=== PATIENT | female | born 1940 | race Caucasian/White ===

== ENCOUNTER 2016-12-19 05:48 | Inpatient (IN) | payer MEDICARE ==
--- NOTE | 2016-12-13 14:29 | HP ---
HISTORY OF PRESENT ILLNESS: Ms. Fili Hewitt is a 76-year-old female that presents with low back pain, tenderness to palpation in the midline lumbar spine and bilateral SI joint pain. She has numbness and tingling in the lower extremities. She has had this pain intermittently and is worse on the right for the past 7 years; however, the pain is much worse in the past year. She is unable to walk for more than a block without having to sit down because of the pain in her legs. She has fallen several times after standing and walking because of her legs suddenly feel weak and give out. She is unable to get groceries at the grocery store because of the pain and has had physical therapy and has had several CESARIO injections over the past 2 years, they do little to relieve the pain and weakness when standing. The pain has made worse when walking and standing for too long and is made somewhat better with bending forward and sitting down. In addition, she has also been having neck pain. REVIEW OF SYSTEMS: Twelve-point review of systems completed, otherwise negative unless stated in the above HPI. PAST MEDICAL HISTORY: Thyroid disease and diabetic. PAST SURGICAL HISTORY: Hysterectomy at age 26 and gallbladder at age 36. HOSPITALIZATIONS: Hypercalcemia in 2015. FAMILY HISTORY: Father is , diagnosed with diabetes. Mother is . Siblings are alive. SOCIAL HISTORY: Nonsmoker. She is , has 3 children. MEDICATIONS: 1. Carvedilol 25 mg orally. 2. Paxil 10 mg 1 tablet in the morning, orally once a day. 3. Gabapentin 300 mg 1 capsule orally 3 times a day. 4. Estradiol 1 mg tablet orally daily for 3 weeks. 5. NovoLog insulin aspart 100 units/mL solution subcutaneous. 6. Humalog insulin lispro 100 units/mL solution subcutaneous. ALLERGIES: CODEINE SULFATE and SULFA. PHYSICAL EXAMINATION: HENT: Normocephalic, atraumatic. Hearing intact. Moist mucous membranes. Trachea midline. EYES: Pupils are equal and reactive to light. Extraocular muscles are intact. Sclerae are white, nonicteric. PSYCH: Normal mood and affect. CARDIOVASCULAR: No cyanosis or clubbing noted. Intact pedal pulses bilaterally. Regular rate and rhythm. MUSCULOSKELETAL: Lower extremity, 5/5 strength in bilateral iliopsoas, quadriceps, hamstrings, right iliopsoas anterior, extensor hallucis longus. Sensory deficits bilaterally in the S1 dermatome. Tender to palpation in the midline lumbar spine. RESPIRATORY: Even respirations, good effort. All lung turpin sound clear with no wheezing or crackles. NEUROLOGIC: Cranial nerves II-XII are grossly intact. Speech is fluent. She answers my questions appropriately. She has unsteady gait and station. ASSESSMENT: 1. Neurogenic claudication. 2. Lumbago with sciatica of the left side. 3. Lumbago with sciatica of the right side. 4. Chronic low back pain. PLAN: Because of Ms. Hewitt's low back pain and radicular symptoms into the legs that has been getting worse and she has failed conservative therapy, she opted for neurosurgical intervention to decompress and fuse L4-L5. Dr. Varela discussed the risks, benefits, alternatives and expected outcomes from surgery with the patient. She is willing to proceed with the surgery. Flexion, extension x-rays, and MRI at [facility]. She will bring on day of surgery. PRECIOUS
[2016-12-18 13:51] VITALS: BMI 27.3
[2016-12-19] MEDS ORDERED: Sodium Chloride 0.9% 30 ML ONE (06:16)
[2016-12-19] MEDS ORDERED: Bupivacaine PF 0.5% 30 ML VIAL ONE (06:16)
[2016-12-19] MEDS ORDERED: Thrombin 5000 UNITS/5 ML VIAL ONE (06:16)
[2016-12-19 06:24] LABS: #Basophils 0.1 thou/uL (0.0-0.2); #Eosinphils 0.1 thou/uL (0.0-0.7); #Lymphocytes 1.9 thou/uL (1.20-3.40); #Monocytes 0.4 thou/uL (0.11-0.59); %Basophils 1.5 % (0.0-1.0); %Eosinophils 2.1 % (0.0-10.0); %Lymphocytes 29.3 % (21.0-51.0); %Monocytes 5.9 % (0.0-10.0); Hematocrit 39.4 % (36.0-47.0); Red Blood Cell (RBC) Count 4.08 mill/uL (4.20-5.40); White Blood Cell (WBC) Count 6.5 thou/uL (4.8-10.8)
[2016-12-19 06:35] LABS: Anion Gap 12 mmol/L (10-20); BUN (Urea Nitrogen) 17 mg/dL (9.8-20.1); Calc. Creatinine Clearance 40 mL/min (70-130); Calcium 10.3 mg/dL (7.8-10.44); Carbon Dioxide 26 mmol/L (23-31); Chloride 99 mmol/L (98-107); Estimated GFR-MDRD 44
[2016-12-19] MEDS ORDERED: CEFAZOLIN/Water 2 GM/20 ML SYRINGE ONE (06:49)
[2016-12-19] MEDS ORDERED: Fentanyl 250 MCG/5 ML VIAL ONE (06:50)
[2016-12-19 06:52] LABS: Prothrombin Time 13.2 SEC (12.0-14.7)
[2016-12-19] MEDS ORDERED: Bisacodyl 10 MG SUPP PR PRN (10:11)
[2016-12-19] MEDS ORDERED: traMADol HCl 50 MG TAB PO PRN (10:15)
[2016-12-19] MEDS ORDERED: Fentanyl 100 MCG/2 ML VIAL ONE (11:14)
--- NOTE | 2016-12-19 11:24 | OP ---
DATE OF PROCEDURE: 12/19/2016 SURGEON: Alyssia Varela M.D. FIRE OFFICER: Yimi Rosa PA-C PREOPERATIVE INDICATION: Treat pain, prevent neurological deterioration. PREOPERATIVE DIAGNOSIS: Spondylolisthesis L4-L5 with significant lumbar spinal canal stenosis and i nstability. POSTOPERATIVE DIAGNOSIS: Spondylolisthesis L4-L5 with significant lumbar spinal canal stenosis and instability. OPERATIVE PROCEDURE: Decompressive laminectomy, complete facetectomy, foraminotomy, L4-L5, transfor aminal lumbar interbody arthrodesis L4-L5, placement of intervertebral biomechanical device L4-L5, p osterolateral arthrodesis L4-L5, pedicle screw and flex instrumentation L4-L5. PREOPERATIVE MEDICATION: Ancef 2 grams IV. DRAIN NUMBER: Zero. DRAIN TYPE: None. OPERATIVE DICTATION: The patient was brought to the operating room. General endotracheal anesthesi a was induced. The patient was positioned prone on the operating table with his chest and hips supp orted by the appropriate attachments for the Naresh frame. A lateral fluoro radiograph was used to plan our incision. The lumbar skin was sterilely prepped and draped. We opened our incision with a 10 blade knife and controlled bleeding with bipolar and monopolar cautery. We used monopolar caut karthik to dissect through the subcutaneous tissues to the thoracodorsal fascia. We incised the fascia in the midline and reflected the paraspinal muscles off the spinous process and lamina of L4 and L5. A self-retaining retractor was placed and a lateral fluoro radiograph confirmed the levels upon wh ich we were operating. We then carried our dissection over the facet joints at L3-L4 and L4-L5 to i dentify the transverse processes of L4 and L5 bilaterally. We irrigated copiously with bacitracin i rrigation. Using an Adson rongeur, we removed the posterior elements of L4. Kerrison rongeurs were used as well. We removed completely abnormal facet joint on the right at L4-L5 in its entirety. W ith this access point, we could enter the intervertebral space through the right L4-L5 foramen. We gently retracted the thecal sac medially and incised the disk space with a 15 blade knife. We remov ed disk contents using curettes and rongeurs. We used bone curettes to prepare the endplates for ar throdesis across that interspace. We measured the height of the interspace to 10 mm of the rectangu lar shaped bone rasp. We brought a 10 mm PEEK graft into the field. Laminectomy bone was carefully morselized on the back table after it was cleaned of all soft tissue attachments. The morselized b one was added to demineralized bone matrix as our fusion substrate. This substrate was packed into the PEEK graft and then the graft was advanced into the interspaces under radiographic guidance to t he appropriate depth. We turned our attention to pedicle screw instrumentation. Using bony anatomic landmarks, palpation of the medial portion of the pedicles, and a lateral fluoro radiograph as a guide, we chose entry points for pedicle screws at L4 and L5 bilaterally. We drill ed out our entry points and then tapped and then used the bone awl to create a trajectory as we kavita ed them, probed them again and then placed 6.5 mm diameter pedicle screws. A 360 degree image set w as generated with our isocenter C-arm confirming adequate positioning for pedicle screw instrumentat ion. We irrigated once again with bacitracin irrigation. With the high speed drill, we decorticate d the transverse processes of L4 and L5 bilaterally and over the decorticated bone in the posterolat eral recess, we left demineralized bone matrix and morselized autograft as our posterolateral fusion substrate. We then brought rods into the screw heads and tightened caps over them using a torque-c ounter-torque mechanism, ensured adequate tightness. Before final tightening, we applied compressio n across the interspace to keep our intervertebral graft in place. We probed the foramina, made domonique e they were widely patent. We irrigated one last time down the middle of the incision. We treated the wound with vancomycin powder, we closed in anatomic layers and we applied a sterile dressing. T his was a clean case and no contamination.
[2016-12-19] MEDS ORDERED: Lidocaine 1% PF 5 ML VIAL ONE (12:57)
[2016-12-19] MEDS ORDERED: CEFAZOLIN 1 GM VIAL ONE (12:57)
[2016-12-19] MEDS ORDERED: Ondansetron HCl/PF 4 MG/2 ML Vial ONE (12:57)
[2016-12-19] MEDS ORDERED: ePHEDrine/0.9% NaCl/PF SYRINGE 50 mg/10 ml ONE (12:57)
[2016-12-19] MEDS ORDERED: PHENYLEPHRINE-NS 100 MCG/ML 10 ML SYRINGE ONE (12:57)
[2016-12-19] MEDS ORDERED: Propofol 200 MG/20 ML VIAL ONE (12:57)
[2016-12-19] MEDS ORDERED: Glycopyrrolate 0.2 MG/ML 5 ML SYRINGE ONE (12:57)
[2016-12-19] MEDS: traMADol HCl 50 MG TAB PO PRN (13:22)
[2016-12-19] MEDS: Sodium Chloride 0.9% 1,000 ML IV SCH ×2 (13:29→23:53)
[2016-12-19] MEDS: Morphine 2 MG/ML SYRINGE SLOW IVP PRN ×4 (13:55→23:52)
[2016-12-19] MEDS ORDERED: INSULIN ASPART SC SCH (15:00)
[2016-12-19] MEDS ORDERED: [UNRECOGNIZED DRUG - OTHER] SC SCH (15:00)
[2016-12-19] MEDS: CEFAZOLIN/Water 2 GM/20 ML SYRINGE SLOW IVP SCH ×2 (15:37→23:52)
[2016-12-19] MEDS: HumaLOG 300 UNITS/3 ML VIAL SC SCH (15:38)
[2016-12-19] MEDS: tiZANidine HCl 4 MG TAB PO PRN (16:53)
[2016-12-19] MEDS: Insulin Detemir 100 UNITS/ML 25 UNITS in Pre-Filled Syringe 1 EACH SC SCH (20:46)
[2016-12-19] MEDS ORDERED: Non-Formulary Item 1 EACH (Levemir Flexpen [Levemir Flexpen] 25 UNIT) SC SCH (21:00)
[2016-12-19] MEDS ORDERED: Carvedilol 25 MG TAB PO SCH (21:00)
[2016-12-20] MEDS: tiZANidine HCl 4 MG TAB PO PRN ×2 (00:48→20:19)
[2016-12-20] MEDS: traMADol HCl 50 MG TAB PO PRN ×2 (02:09→13:03)
[2016-12-20] MEDS: Ondansetron HCl/PF 4 MG/2 ML Vial IVP PRN (02:39)
[2016-12-20] MEDS: Levothyroxine Sodium 50 MCG TAB PO SCH (05:00)
[2016-12-20] MEDS: Acetaminophen 325 MG TAB PO PRN ×2 (05:00→18:56)
[2016-12-20] MEDS: Morphine 2 MG/ML SYRINGE SLOW IVP PRN (06:32)
--- NOTE | 2016-12-20 07:30 | PRG ---
DATE OF SERVICE: 12/20/2016 Ms. Hewitt is 1 day out from decompression fusion for spondylolisthesis at L4-5. She had significant canal stenosis and right foraminal disease which is now decompressed and stabilized. Ms. Hewitt is sore from her operation. Her legs feel better than they did before surgery. My goal today for Ms. Hewitt is slow mobilization with physical therapy. It would be ideal if she could walk in the [facility] and around the nurses station with her brace on. She should wear her brace when she is up sittin g, standing or walking. If it seems as though she would benefit from inpatient rehabilitation then by the end of the day, we can start the process for that referral.
--- NOTE | 2016-12-20 07:43 | HP ---
DATE OF SERVICE: 12/20/2016 Ms. Hewitt is status post L4-L5 laminectomy and transforaminal interbody fusion. Overnight, her batsheva l signs have been stable. She is able to answer my questions and move all of her extremities this m orning with no problems. She said the pain in her back and her legs have improved; however, we will have her work with physical therapy today to ambulate in [place] as much as possible. Last night and throughout the night she got approximately 4 times to walk to the bathroom. Will also have an LSO br kamille applied whenever ambulating and sitting upright. If there are any further questions, please feel free to contact Neurosurgery.
[2016-12-20] MEDS: Carvedilol 6.25 MG TAB PO SCH (08:44)
[2016-12-20] MEDS: Multivit, Therapeutic 1 TAB PO SCH (08:44)
[2016-12-20] MEDS: Estradiol 1 MG TAB PO SCH (08:45)
[2016-12-20] MEDS: PARoxetine CR 12.5 MG TAB PO SCH (08:45)
[2016-12-20] MEDS: HumaLOG 300 UNITS/3 ML VIAL SC SCH ×3 (08:46→19:03)
[2016-12-20] MEDS ORDERED: Carvedilol 25 MG TAB PO SCH (09:00)
[2016-12-20] MEDS: Sodium Chloride 0.9% 1,000 ML IV SCH (18:56)
[2016-12-20] MEDS: Insulin Detemir 100 UNITS/ML 25 UNITS in Pre-Filled Syringe 1 EACH SC SCH (20:37)
[2016-12-21] MEDS: traMADol HCl 50 MG TAB PO PRN ×3 (01:21→20:09)
--- OUTSIDE RECORDS SUMMARY | 2016-12-21 01:27 | XMS | Continuity of Care Document ---
:1940 Author Organization [facility] Care Team Providers Name Role Phone KATARINA MACHADO Primary Care Physician Unavailable Insurance Providers Payer Name Policy Number Subscriber Name Relationship MEDICARE/HMO MISC [id number] JEAN BARRERA SELF/SAME PATIENT OTHER1 [id number] KARTIK BARRERA Advance Directives Directive Response Recorded Date/Time Advance Directive? N 01/18/16 7:07pm Living Will? N 01/18/16 7:07pm Health Care Proxy? N 01/18/16 7:07pm Healthcare Power of Line Rider? Y 01/18/16 7:07pm Is the patient an Organ Donor? N 01/18/16 7:07pm Chief Complaint and Reason for Visit Reason for Visit CUT HAND/TENDON SHOWING Problems Active Medical Problems Problem Onset Date Recorded Date Status Laceration of hand Unknown 01/18/16 Active Medications Current Home Medications Medication Dose Units Route Directions Days/Qty Instructions Start Date ASPIRIN (ASPIR-LOW) 325 MG PO EVERY DAY @ 0900 81 MG TAB Bacitracin-Polymyxi 15 GM EX TWICE A DAY 1 01/18/16 n-Neomycin (899; 2099) (CORTISPORIN OINTMENT) 15 GM OIN Carvedilol 12.5 MG PO TWICE A DAY 60 (CARVEDILOL 12.5 MG (0900; 2100) TAB) 12.5 MG TAB Cefadroxil 500 MG PO THREE TIME A 10 Days 01/18/16 (CEFADROXIL 500 MG DAY(;15;21) CAP) 500 MG CAP Estradiol (ESTRACE 1 MG PO EVERY DAY @ 0900 1 MG TAB) 1 MG TAB FUROSEMIDE 20 MG PO EVERY DAY @ 0900 (FUROSEMIDE 20 MG TAB) 20 MG TAB GABAPENTIN 300 MG PO TWICE A DAY (GABAPENTIN 300 MG (899; 2099) CAP) 300 MG CAP HYDRALAZINE HCL 25 MG PO TWICE A DAY (APRESOLINE 25 MG (899; 2099) TAB) 25 MG TAB Insulin (HUMULIN R 5 UNIT SC THREE TIMES 30 Days 04/20/14 100 UNIT/ML INJ) DAILY WITH MEALS 100 UNITS/ML INJ Insulin,Glargine 22 UNITS EVERY EVENING [facility] In (1700) (LANTUS (INSULIN) INJ) 100 UNITS/ML INJ Levothyroxine 50 MCG PO EVERY DAY @ 0900 Sodium (SYNTHROID 0.05 MG TAB) 50 MCG TAB Multiple Vitamins 1 TAB PO EVERY DAY @ 0900 W/ Minerals (Womens Daily Formula) 1 TAB TAB POTASSIUM CHLORIDE 10 MEQ PO EVERY DAY @ 0900 (K-TAB (POTASSIUM CL) 10 MEQ TAB) 10 MEQ TAB Paroxetine (PAXIL 10 MG PO EVERY DAY @ 0900 10 MG TAB) 10 MG TAB Past Home Medications Medication Directions Ordered Status Abacavir Sulfate (Ziagen) 300 Mg Tab Unknown Discontinued Tab, Ferrous Sulfate (Fe Sulfate 325 Mg EVERY DAY @ 0900 Unknown Discontinued Tab) 325 Mg Tab Tab, 325 Mg Po Glimepiride (Glimepiride 4 Mg Tab) 4 EVERY MORNING Unknown Discontinued Mg Tab Tab, 4 Mg Po Gabapentin (Neurontin 600 Mg) 600 Mg AT BEDTIME (2099) Unknown Discontinued Tab Tab, 600 Mg Or Glimepiride (Amaryl 4 Mg) 4 Mg Tab EVERY DAY @ 0900 Unknown Discontinued Tab, 8 Mg Or Hydrochlorothiazide Tab EVERY MORNING Unknown Discontinued (Hydrochlorothiazide) 12.5 Mg Tab Tab, 12.5 Mg Po Insulin Glargine (Lantus Solostar) EVERY MORNING 04/20/14 Discontinued 100 Units/Ml Inj Inj, 30 Units Sc Metformin Hcl Xr (Glucophage Xr 500 THREE TIME A DAY(;) Unknown Discontinued Mg Tab) 500 Mg Tab Tab, 500 Mg Po Metformin Hydrochloride (Glucophage TWICE A DAY (899; 2099) Unknown Discontinued 500 Mg Tab) 500 Mg Tab Tab, 500 Mg Po Omeprazole (Prilosec) 20 Mg Cap Cap, EVERY DAY @ 0900 Unknown Discontinued 20 Mg Po Sitagliptin Phosphate (Januvia 100 EVERY DAY @ 0900 Unknown Discontinued Mg Tab) 100 Mg Tab Tab, 100 Mg Po Sitagliptin Phosphate (Januvia 25 Mg DAILY AT NOON Unknown Discontinued Tab) 25 Mg Tab Tab, 100 Mg Po Social History Problem Response Recorded Date Recreational drugs? N 01/18/16 Alcohol? N 01/18/16 Hospital Discharge Instructions No hospital discharge instructions. Plan of Care Discharge Date 01/18/16 Disposition HOME/SELF CARE Condition at Discharge STABLE Instructions/Education Provided How to Care for a Laceration After Repair Forms Provided Discharge Form Prescriptions See Medications Section Functional Status No functional status results. Allergies, Adverse Reactions, Alerts Allergen Type Severity Reaction Status Last Updated Acetaminophen Allergy Unknown Active 11/03/11 Codeine Allergy Unknown Active 10/20/11 Hydrocodone Allergy Unknown Active 11/03/11 Tramadol Allergy Unknown Active 10/20/11 JESÚS Inhibitors Allergy Unknown Active 12/04/12 Angiotensin Receptor Blockers Allergy Unknown Active 12/04/12 Sulfa Antibiotics Allergy Unknown Active 10/20/11 Immunizations Name Date Given Type DTaP 01/18/16 Administered Vital Signs Vital Reading Collection Date/Time Result Blood Pressure 01/18/16 8:53pm 168/87 Patient Temperature 01/18/16 8:53pm 97.7 Temperature Source 01/18/16 7:03pm Oral Pulse Rate 01/18/16 8:53pm 82 Bedside Pulse Oximetry 01/18/16 8:53pm 97 Height 01/18/16 7:03pm 152.40 cm Height 01/18/16 7:03pm 5 ft 0.00 in Weight 01/18/16 7:03pm 68.039 kg Weight 01/18/16 7:03pm 150 lb 0.00 oz Body Mass Index 01/18/16 7:03pm 29.3 Results No known relevant diagnostic tests, laboratory data and/or discharge summary. Procedures No Known History of Procedures. Encounters Encounter Location Arrival/Admit Date Discharge/Depart Date Attending Provider Departed [place] 01/18/16 6:51pm 01/18/16 8:54pm STEPHANY, Emergency [facility] Encounter Diagnosis Laceration of hand
[2016-12-21] MEDS: Morphine 2 MG/ML SYRINGE SLOW IVP PRN ×2 (02:52→05:33)
[2016-12-21] MEDS: Sodium Chloride 0.9% 1,000 ML IV SCH ×2 (04:21→14:43)
[2016-12-21] MEDS: Levothyroxine Sodium 50 MCG TAB PO SCH (05:26)
--- NOTE | 2016-12-21 06:51 | PRG ---
DATE OF SERVICE: 12/21/2016 NEUROSURGERY PROGRESS NOTE SUBJECTIVE: Ms. Hewitt is 2 days out from lumbar decompression and fusion. She has been making a sl ow, but steady recovery on general floor. Yesterday, she moved with physical therapy. She got out of bed and took some steps. This is painful for her and she did not want to go long. She recalls o ne episode of sliding out of bed becomes unable to roll successfully over on her own. Her vital sig ns remain stable. Her glucose is improved. Her neurological examination is reassuring while she is lying flat in bed. I think Ms. Hewitt would benefit from inpatient rehabilitation. Hopefully, she can be screened today except it is a candidate and transferred soon. We will try to start those arrangements immediately .
--- NOTE | 2016-12-21 07:31 | PRG ---
DATE OF SERVICE: 12/21/2016 SUBJECTIVE: Ms. Hewitt is a 76-year-old female who I saw in her room this morning. She has good str ength in her lower and upper extremities bilaterally and no dermatomal sensory loss. She does still have incisional pain in the back. Last night around 2:30 a.m., I had a call that she had got up to go the bathroom and fell. She was on the floor for approximately 5 minutes before she was assisted back to bed. She does not admit to any more pain since the fall this morning. PHYSICAL EXAMINATION: VITAL SIGNS: Have been stable overnight, slightly hypertensive blood pressure of 150/81. NEUROLOGI C: She has had no new neurologic deficits on exam. PLAN: We will have physical therapy see her today and ambulate as much as possible with the i n place. If there are any further questions, please feel free to contact Neurosurgery.
[2016-12-21] MEDS: Multivit, Therapeutic 1 TAB PO SCH (08:07)
[2016-12-21] MEDS: PARoxetine CR 12.5 MG TAB PO SCH (08:07)
[2016-12-21] MEDS: Carvedilol 6.25 MG TAB PO SCH (08:08)
[2016-12-21] MEDS: Estradiol 1 MG TAB PO SCH (08:09)
[2016-12-21] MEDS: HumaLOG 300 UNITS/3 ML VIAL SC SCH ×3 (08:12→16:42)
[2016-12-21] MEDS: Acetaminophen 325 MG TAB PO PRN (16:39)
[2016-12-21] MEDS: Insulin Detemir 100 UNITS/ML 25 UNITS in Pre-Filled Syringe 1 EACH SC SCH (20:11)
[2016-12-22] MEDS: tiZANidine HCl 4 MG TAB PO PRN (00:12)
[2016-12-22] MEDS: traMADol HCl 50 MG TAB PO PRN ×3 (06:16→20:44)
[2016-12-22] MEDS: Levothyroxine Sodium 50 MCG TAB PO SCH (06:17)
[2016-12-22] MEDS: Sodium Chloride 0.9% 1,000 ML IV SCH ×2 (06:54→16:57)
[2016-12-22] MEDS: Estradiol 1 MG TAB PO SCH (09:09)
[2016-12-22] MEDS: PARoxetine CR 12.5 MG TAB PO SCH (09:10)
[2016-12-22] MEDS: Multivit, Therapeutic 1 TAB PO SCH (09:11)
[2016-12-22] MEDS: Carvedilol 6.25 MG TAB PO SCH (09:11)
[2016-12-22] MEDS: HumaLOG 300 UNITS/3 ML VIAL SC SCH ×3 (09:14→16:57)
--- NOTE | 2016-12-22 09:31 | PRG ---
DATE OF SERVICE: 12/22/2016 NEUROSURGERY PROGRESS NOTE SUBJECTIVE: Ms. Hewitt had a better day yesterday than the day before. She is more able to stand an d walk with assistance. She has some soreness in her legs, but she feels like her pain from surgery and pain in her lower extremities is improving. She has not moved much with rehabilitation quite y et. She is undergoing screening for inpatient rehabilitation. On examination this morning, Ms. Hewitt's neurologic function in lower extremities is reassuring. For inpatient rehabilitation facility, I think she is a good candidate for admission, she can be tra nsferred as early as today if not placed in [place], might be secured ,so that she can get some more aggressive physical therapy and going home in her current situation. We will get an ultrasoun d of the lower extremities to make sure there is no DVT and encourage mobilization.
[2016-12-22] MEDS: Acetaminophen 325 MG TAB PO PRN (11:58)
--- NOTE | 2016-12-22 13:12 | ULT ---
BILATERAL LOWER EXTREMITY VENOUS DOPPLER ULTRASOUND: Date: 12/22/16 HISTORY: Immobility risk for deep venous thrombosis, bilateral lower extremity swelling and pain. TECHNIQUE: Smith scale ultrasound with color flow and spectral Doppler imaging of the deep venous systems of the lower extremities was performed bilaterally. FINDINGS: There is good flow, compression, and augmentation noted in the common femoral, femoral, deep femoral , popliteal, posterior tibial, and greater saphenous veins on either side. IMPRESSION: No evidence of deep venous thrombosis in either lower extremity. POS: MICHELLE
[2016-12-22] MEDS: Insulin Detemir 100 UNITS/ML 25 UNITS in Pre-Filled Syringe 1 EACH SC SCH (20:46)
[2016-12-22] MEDS: Morphine 2 MG/ML SYRINGE SLOW IVP PRN (22:23)
[2016-12-23] MEDS: tiZANidine HCl 4 MG TAB PO PRN (00:38)
[2016-12-23] MEDS: Morphine 2 MG/ML SYRINGE SLOW IVP PRN ×2 (01:42→13:12)
[2016-12-23] MEDS: Levothyroxine Sodium 50 MCG TAB PO SCH (06:08)
[2016-12-23] MEDS: Estradiol 1 MG TAB PO SCH (09:03)
[2016-12-23] MEDS: Multivit, Therapeutic 1 TAB PO SCH (09:04)
[2016-12-23] MEDS: HumaLOG 300 UNITS/3 ML VIAL SC SCH ×3 (09:04→17:02)
[2016-12-23] MEDS: PARoxetine CR 12.5 MG TAB PO SCH (09:04)
[2016-12-23] MEDS: Carvedilol 6.25 MG TAB PO SCH (09:04)
[2016-12-23] MEDS: Sodium Chloride 0.9% 1,000 ML IV SCH (09:05)
[2016-12-23] MEDS: traMADol HCl 50 MG TAB PO PRN (12:07)
[2016-12-23] MEDS: Morphine 10 MG/ML VIAL SLOW IVP PRN ×2 (18:18→23:18)
[2016-12-23] MEDS: Insulin Detemir 100 UNITS/ML 25 UNITS in Pre-Filled Syringe 1 EACH SC SCH (22:10)
[2016-12-24] MEDS: Morphine 10 MG/ML VIAL SLOW IVP PRN ×4 (04:17→22:59)
[2016-12-24] MEDS: Levothyroxine Sodium 50 MCG TAB PO SCH (04:28)
[2016-12-24] MEDS: Carvedilol 6.25 MG TAB PO SCH (08:19)
[2016-12-24] MEDS: PARoxetine CR 12.5 MG TAB PO SCH (08:19)
[2016-12-24] MEDS: Estradiol 1 MG TAB PO SCH (08:19)
[2016-12-24] MEDS: HumaLOG 300 UNITS/3 ML VIAL SC SCH ×3 (08:20→17:56)
[2016-12-24] MEDS: Multivit, Therapeutic 1 TAB PO SCH (08:20)
[2016-12-24] MEDS: tiZANidine HCl 4 MG TAB PO PRN (17:58)
[2016-12-24] MEDS: Insulin Detemir 100 UNITS/ML 25 UNITS in Pre-Filled Syringe 1 EACH SC SCH (21:16)
[2016-12-24] MEDS: traMADol HCl 50 MG TAB PO PRN (21:19)
[2016-12-25] MEDS: tiZANidine HCl 4 MG TAB PO PRN ×3 (01:00→22:09)
[2016-12-25] MEDS: Morphine 10 MG/ML VIAL SLOW IVP PRN ×3 (01:58→15:54)
[2016-12-25] MEDS: Ondansetron HCl/PF 4 MG/2 ML Vial IVP PRN (02:04)
[2016-12-25] MEDS: traMADol HCl 50 MG TAB PO PRN ×2 (06:32→22:07)
[2016-12-25] MEDS: Levothyroxine Sodium 50 MCG TAB PO SCH (06:32)
--- NOTE | 2016-12-25 06:51 | PRG ---
DATE OF SERVICE: 12/25/2016 Ms. Hewitt had a better weekend than she did at the end of last week. She is recovering from a decom pression and fusion lumbar spine and tolerating her therapy over the weekend. Arrangements were mad e for discharge to inpatient rehabilitation on Sunday. The remains in the hospital. We will ensure that she is ready for transfer today and will make those arrangements happen.
--- NOTE | 2016-12-25 06:51 | PRG ---
DATE OF SERVICE: 12/25/2016 Ms. Hewitt is a 76-year-old female who I saw in her room this morning. Her vital signs overnight hav e been stable and there are no new neurologic deficits on exam. She has been ambulating with physic al therapy, however, her recovery has been a bit slow as she has had some incisional back pain. She notes that the pain in the lower legs when walking has decreased postoperatively compared to preope ratively. She is currently waiting on physician approval for rehab. I put prescriptions on her ildefonso rt and also signed the MOT today for her transfer. I will put the discharge plan in. If there are any further questions, please [facility].
[2016-12-25] MEDS: Multivit, Therapeutic 1 TAB PO SCH (09:03)
[2016-12-25] MEDS: Carvedilol 6.25 MG TAB PO SCH (09:03)
[2016-12-25] MEDS: PARoxetine CR 12.5 MG TAB PO SCH (09:04)
[2016-12-25] MEDS: Estradiol 1 MG TAB PO SCH (09:04)
[2016-12-25] MEDS: HumaLOG 300 UNITS/3 ML VIAL SC SCH ×3 (09:59→18:57)
[2016-12-25] MEDS: Insulin Detemir 100 UNITS/ML 25 UNITS in Pre-Filled Syringe 1 EACH SC SCH (22:09)
[2016-12-26] MEDS: Morphine 10 MG/ML VIAL SLOW IVP PRN ×3 (00:04→20:24)
[2016-12-26] MEDS: Levothyroxine Sodium 50 MCG TAB PO SCH (04:55)
--- NOTE | 2016-12-26 07:13 | PRG ---
DATE OF SERVICE: 12/26/2016 Ms. Hewitt is still in the hospital. She is 1 week out from decompression and fusion lumbar spine. She is ready for discharge and transfer to inpatient rehabilitation facility on Sunday when her [place] randum of transfer was signed and filled out. She remained over the weekend and yesterday and she i s still in her hospital room this morning. She has no complaints this morning. She feels like she is recovering nicely and working with physical therapy. She was able to ambulate in the halls yeste rday. I removed an occlusive dressing today and the incision is well approximated without any sign of infection. I am optimistic Ms. Hewitt can be transferred to inpatient rehab today. She is safe for her activiti es of daily living in the rehab facility, I think she is doing too well for transfer then she can be sent home with home health, but I think rehab is the best place for her.
[2016-12-26] MEDS: Carvedilol 6.25 MG TAB PO SCH (08:29)
[2016-12-26] MEDS: Multivit, Therapeutic 1 TAB PO SCH (08:30)
[2016-12-26] MEDS: PARoxetine CR 12.5 MG TAB PO SCH (08:31)
[2016-12-26] MEDS: HumaLOG 300 UNITS/3 ML VIAL SC SCH ×3 (08:32→15:53)
[2016-12-26] MEDS: Estradiol 1 MG TAB PO SCH (08:33)
--- NOTE | 2016-12-26 11:45 | PRG ---
DATE OF SERVICE: 12/26/2016 Ms. Hewitt is a 76-year-old female I saw in her room this morning. There have been no acute events o vernight and her neurologic status is the same as it has been in the past few days. She has no new neurologic deficits on exam. This morning, her glucose is 299. There are no new labs to review except for glucose. She is able to get up and ambulate with physica l therapy at least 3 times a day. Yesterday, her insurance company denied inpatient rehabilitation, so today we will be working to make a referral to [facility] swing bed as an alternati ve option. The patient will need some help with activities of daily living the first 2 days out of the hospital. Said she will need to walk approximately 5 times a day and needs to be up sitting in the chair the majority of the day. She will continue to work with physical therapy here at [facility] until the swing bed becomes available at [facility]. If there are any furt her questions, please feel free to contact Neurosurgery.
[2016-12-26] MEDS: tiZANidine HCl 4 MG TAB PO PRN ×2 (13:07→18:36)
[2016-12-26] MEDS: traMADol HCl 50 MG TAB PO PRN ×3 (13:08→23:49)
[2016-12-26] MEDS: Insulin Detemir 100 UNITS/ML 25 UNITS in Pre-Filled Syringe 1 EACH SC SCH (20:25)
[2016-12-27] MEDS: Morphine 10 MG/ML VIAL SLOW IVP PRN (02:25)
[2016-12-27] MEDS: tiZANidine HCl 4 MG TAB PO PRN (06:33)
[2016-12-27] MEDS: Levothyroxine Sodium 50 MCG TAB PO SCH (06:33)
--- NOTE | 2016-12-27 08:01 | PRG ---
DATE OF SERVICE: 12/27/2016 Ms. Hewitt is a 76-year-old female who I saw in her room this morning. It was supposed to be arrange d yesterday for her to be discharged to swing bed in [place], however, bed acceptance is still pending per her insurance as the daughter had tried to make an appeal with the insurance company yes terday. Ms. Hewitt is doing relatively well; however, she still needs some help to ambulate. She figueroa s been ambulating about 3-4 times a day with the nursing staff and with physical therapy. She has b een able to tolerate a regular diet and her pain is well controlled with pain medication. Her gluco se this morning was 163. Her vital signs have been stable overnight and she has been afebrile. The re are no new neurologic deficits on exam. The pain radiating down her legs from before the operati on has resolved whenever she is walking. Today I spoke with for social work this morning and they a re going to contact Ms. Hewitt's daughter to delete their request for the repeal from the insurance rosy rosario so that she can be accepted at [place] swing bed for halfway. If there are any further questions, please feel free to contact Neurosurgery. In the meantime, she can continue to work with physical therapy and ambulate as much as possible.
--- NOTE | 2016-12-27 08:20 | PRG ---
DATE OF SERVICE: 12/27/2016 Ms. Hewitt is still in the hospital today. In spite of our best efforts, she remains. She is due to be transferred to a swing bed in [place] where she will be able to receive physical therapy. She needs to become more independent before transferring home.
[2016-12-27 08:24] VITALS: BP 138/82; TEMP 97.4
--- NOTE | 2016-12-27 09:23 | ULT ---
BILATERAL LOWER EXTREMITY VENOUS DUPLEX SONOGRAM: HISTORY: Bilateral leg pain and edema. FINDINGS: Each common femoral vein and greater saphenous junction were evaluated, along with each femoral, antonia p femoral, popliteal, and posterior tibial vein. There is good color and spectral Doppler flow, com pression, and augmentation. IMPRESSION: No sonographic evidence of deep venous thrombosis within either lower extremity. POS: JAYLIN
[2016-12-27] MEDS: HumaLOG 300 UNITS/3 ML VIAL SC SCH (09:29)
[2016-12-27] MEDS: Carvedilol 6.25 MG TAB PO SCH (09:30)
[2016-12-27] MEDS: Estradiol 1 MG TAB PO SCH (09:31)
[2016-12-27] MEDS: PARoxetine CR 12.5 MG TAB PO SCH (09:31)
[2016-12-27] MEDS: Multivit, Therapeutic 1 TAB PO SCH (09:31)
[2016-12-27] MEDS: traMADol HCl 50 MG TAB PO PRN (10:58)
== END 2016-12-27 11:10 | disposition swing bed (61) | DRG 460 ==
LOC: SURG A 05:48 → T4-B 11:52
PROVIDERS: ADMIT Neurological Surgery; ATTEND Neurological Surgery
PROC: 01NB0ZZ Release Lumbar Nerve, Open Approach (ICD-10-PCS; principal; 2016-12-19)
PROC: 0SG10AJ Fusion of 2 or more Lumbar Vertebral Joints with Interbody Fusion Device, Posterior Approach, Anterior Column, Open Approach (ICD-10-PCS; 2016-12-19)
DX: M48.062 Spinal stenosis, lumbar region with neurogenic claudication (principal); G89.29 Other chronic pain; M54.42 Lumbago with sciatica, left side; M54.5 Low back pain; M54.41 Lumbago with sciatica, right side; M43.16 Spondylolisthesis, lumbar region; W18.30XA Fall on same level, unspecified, initial encounter; Y92.230 Patient room in hospital as the place of occurrence of the external cause; Z88.5 Allergy status to narcotic agent; Z88.2 Allergy status to sulfonamides
CPT/HCPCS: 36415; 36416; 76001; 80048; 85025; 85610; 85730; 93970; A4216; C1713; C1768; G8978-GP-CL; G8979-GP-CJ; G8987-GO-CL; G8988-GO-CJ; J0690; J1815; J2001; J2270; J2405; J2704; J3010; J3370; J3490; S0020